=== PATIENT | male | born 1950 | race Caucasian/White ===

== ENCOUNTER → 2017-10-24 08:39 | Outpatient (CLI) | payer BC ==
[2017-10-24 09:43] LABS: ALBUMIN 3.6 g/dL (3.4-5.0); BILIRUBIN - DIRECT 0.02 mg/dL (0.00-0.30); BILIRUBIN - INDIRECT 0.21 mg/dL (0.00-1.00); BILIRUBIN - TOTAL 0.23 mg/dL (0.2-1.3); PROTEIN - SERUM 6.7 g/dL (6.4-8.2)
== END | disposition home or self-care (01) ==
LOC: D.US 08:39
PROVIDERS: Internal Medicine Gastroenterology
DX: R79.89 Other specified abnormal findings of blood chemistry (principal)

== ENCOUNTER 2017-11-21 16:48 | Inpatient (IN) | payer BC ==
[~2017-11-21] VITALS: Ht 175.3 cm; Wt 80.6 kg
--- NOTE | ~2017-11-21 | MORECARE ---
CASE MANAGEMENT DISCHARGE SUMMARY PATIENT: MAYCOL LAW UNIT: [id number] ADM DATE: 11/21/17 AGE: 67 : [birth year] SEX: M ROOM/BED: D.[facility]7 AUTHOR: HENNA,DOC PHYSICIAN: REFERRING PHYSICIAN: RED MCCALLUM M.D. DATE OF SERVICE: 11/24/17 Discharge Plan Patient Name: MAYCOL LAW Facility: [facility]:[place] : 1950 Planned Disposition: Home Anticipated Discharge Date: 11/24/17 Discharge Date: 11/24/2017 Expected LOS: 3 Initial Reviewer: [email or web address] Initial Review Date: 11/24/2017 Generated: 11/24/17 5:11 pm Comments DCP- Discharge Planning Updated by [email or web address]: Timmy Nicholson on 11/24/17 3:[address] Patient Name: MAYCOL LAW Admission Status: ER Accout number: [id number] Admission Date: 11-21-2017 : 1950 Admission Diagnosis: Attending: RED MCCALLUM Current LOS: 3 Anticipated DC Date: 11-24-2017 Planned Disposition: Home Primary Insurance: ClaimReturn OUT OF STATE Discharge Planning Comments: * Is the patient Alert and Oriented? Yes 0 * How many steps to enter\exit or inside your home? 1 0 * PCP DR. COSTA 0 * Pharmacy [facility] [address] [facility] * Preadmission Environment Home with Family 0 * ADLs Independent 0 * Equipment None 0 * Other Equipment NO MEDICAL EQUIPMENT PROVIDER PREFERENCE 0 * List name and contact numbers for known caregivers / representatives who currently or will assist patient after discharge: ERINN LAW, SPOUSE, 0 * Verbal permission to speak to the caregivers and representatives has been obtained from the patient. Yes 0 * Community resources currently utilized None 0 * Please name any agencies selected above. NONE 0 * Additional services required to return to the preadmission environment? No 0 * Can the patient safely return to the preadmission environment? Yes 0 * Has this patient been hospitalized within the prior 30 days at any hospital? No 0 CM MET WITH PT AND SPOUSE IN ROOM TO DISCUSS DISCHARGE PLANNING AND NEEDS. MAYCOL LAW provided verbal consent to discuss current and ongoing needs with/in the presence of: SPOUSE LIZ. PT REPORTS LIVING AT HOME INDEPENDENTLY WITH SPOUSE. PT HAS NO MEDICAL EQUIPMENT AND NO OUTSIDE SERVICES ASSISTING IN THE HOME. CM DISCUSSED AVAILABILITY OF HOME HEALTH, REHAB SERVICES AND MEDICAL EQUIPMENT. PT DENIES DISCHARGE NEEDS, REPORTS HIS SPOUSE IS HERE TO PICK HIM UP FOR DISCHARGE HOME TODAY. LINER MACHINE OPERATOR NURSE NOTIFIED. Citizenship Teacher: Timmy Nicholson DCPIA - Discharge Planning Initial Assessment Updated by [email or web address]: Timmy Nicholson on 11/24/17 4:07 pm * Is the patient Alert and Oriented? Yes * How many steps to enter\exit or inside your home? * PCP DR. COSTA * Pharmacy [facility] [address] * Preadmission Environment Home with Family * ADLs Independent * Equipment None * Other Equipment NO MEDICAL EQUIPMENT PROVIDER PREFERENCE * List name and contact numbers for known caregivers / representatives who currently or will assist patient after discharge: ERINN LAW, SPOUSE, * Verbal permission to speak to the caregivers and representatives has been obtained from the patient. Yes * Community resources currently utilized None * Please name any agencies selected above. NONE * Additional services required to return to the preadmission environment? No * Can the patient safely return to the preadmission environment? Yes * Has this patient been hospitalized within the prior 30 days at any hospital? No Patient Name: MAYCOL LAW Page [id number] at 1611 All edits/amendments must be made on the electronic document DICTATION DATE: 11/24/17 161 CENTER MACHINE OPERATOR: EVER 11/24/17 1611 RPT#: [id number] DC DATE:11/24/17 STATUS: DIS IN [facility] [address] [place] [address] END OF REPORT
--- NOTE | ~2017-11-21 | HEMODYNAMI ---
PATIENT:MAYCOL LAW MEDICAL RECORD: [id number] : 54 [id number] ADMISSION DATE: 11/21/17 Generatedon:11/21/201721:23 Patient name: MAYCOL LAW Patient #: [id number] SSN: DO B: 1950 Date of study: 11/21/2017 Page: Of Hemodynamic Procedure Report Patient Data Patient Demographics Procedure consent was obtained First Name: MAYCOL Gender: Male Last Name: THANH : 1950 Patient #: [id number] Age: 67 year(s) Race: Unknown Additional ID: [id number] Contact details [address]: [address] [place] [address] State: [place] City: [place] Zip code: [address] Admission Admission Data Admission Date: 11/21/2017 Admission Time: 16:48 Height (in.): 68.9 BSA: 1.95 (m2) Height (cm.): 175 BMI: 25.8 (kg/m2) Weight (lbs.): 174.17 Weight (kg.): 79 Procedure Procedure Types Cath Procedure Diagnostic Procedure C [facility] w/Coronaries Sedation Charges Moderate Sedation up to 45 minutes PCI Procedure AMI/SVG/CIRCULAR KNIFE MACHINE CUTTER PTCA or Stent AMI-BMS/BRONSON Initial Procedure Description Procedure Date Procedure Date: 11/21/2017 Procedure Start Time: 20:23 Procedure End Time: 21:17 Procedure Staff Name Function Raghu Boyd MD Performing Physician Kristina Deng RT Monitor Silvia Del Toro RT Scrub Abebe Khan RN Nurse Procedure Data Cath Procedure Fluoroscopy Diagnostic fluoroscopy Total fluoroscopy Time: time: 15.2 min 15.2 min Diagnostic fluoroscopy Total fluoroscopy dose: dose: 2226 mGy 2226 mGy Contrast Material Contrast Material Type Amount (ml) Isovue 300 239 Entry Location Entry Primary Successful Side Size Upsize Upsize Entry Closure Succes sful Closure Location (Fr) 1 (Fr) 2 (Fr) Remarks Device Remarks Femoral Right 6 Fr Exoseal artery Short Estimated blood loss: 5 ml Diagnostic catheters Device Type Used For End Catheter Placement MULTIPACK JL 4.0 5Fr Left Coronary catheter Angiography MULTIPACK 3DRC 5Fr Right Coronary catheter Angiography MULTIPACK Pigtail 5 Fr LV Angiography catheter Procedure Complications No complications Procedure Medications Medication Administration Route Dosage Oxygen etCO2 Nasal cannula 2 l/min Heparin Flush Bag added to field 2 bags (1000units/500ml NS) 0.9% NaCl I.V. 100 ml/hr Fentanyl I.V. 50 mcg Versed I.V. 1 mg Fentanyl I.V. 50 mcg Versed I.V. 1 mg Lopressor I.V. 2.5 mg Heparin Bolus I.V. 8000 units Nitroglycerin IC/IA I.C. 100 mcg Nitroglycerin IC/IA I.C. 100 mcg Brilinta P.O. 180 mg Hemodynamics Rest BSA: 1.95 (m2) O2 Consumption: Estimated: 253.25 (ml/min) O2 Consumption indexed : Estimated:129.87 (ml/min/m) Heart Rate: 105 (bpm) Pressure Samples Time Site Value (mmHg) Purpose Heart Use Rate(bpm) 21:13 LV 137/8,28 Snapshot 98 21:14 AO 141/76(104) Pullback 103 21:14 LV 142/9,32 Pullback 103 Gradients Valve Time Site 1 Site 2 Mean SEP/DFP Peak To Heart Use (mmHg) (sec/min) Peak Rate (mmHg) (bpm) Aortic 21:14 LV AO 16 9 1 103 142/9,32 141/76(104) Calculations Valve P-P Mean Valve Index Valve Source Name Gradient Area Flow (cm2) Aortic 1 16 1 16 Snapshots Pre Cath Intra NCS Post Cath Vital Signs Time Heart Resp SPO2 etCO2 NIBP (mmHg) Rhythm Pain Sedation Rate (ipm) (%) (mmHg) Status Level (bpm) 20:17:39 105 10 95 0 161/95(115) NSR 0 (11) 10(A) , No pain 20:21:55 105 16 96 32.2 160/93(119) NSR 0 (11) 10(A) , No pain 20:26:13 110 16 95 36.7 161/93(122) NSR 0 (11) 9(A) , No pain 20:30:27 105 16 96 35.9 161/89(120) NSR 0 (11) 9(A) , No pain 20:34:43 100 16 97 37.4 154/94(117) NSR 0 (11) 9(A) , No pain 20:39:00 101 16 98 34.5 153/91(110) NSR 0 (11) 9(A) , No pain 20:43:09 100 16 96 35.9 140/86(109) NSR 0 (11) 9(A) , No pain 20:47:22 103 17 96 38.9 144/80(110) NSR 0 (11) 9(A) , No pain 20:51:33 105 17 94 38.2 138/77(98) NSR 0 (11) 9(A) , No pain 20:55:43 99 17 96 39 132/82(105) NSR 0 (11) 9(A) , No pain 20:59:53 104 16 96 37.5 140/84(106) NSR 0 (11) 9(A) , No pain 21:04:05 103 17 97 38.2 137/81(99) NSR 0 (11) 9(A) , No pain 21:08:17 104 17 95 37.4 131/79(89) NSR 0 (11) 9(A) , No pain 21:12:27 102 16 95 36.7 134/75(95) NSR 0 (11) 9(A) , No pain 21:16:37 102 16 96 37.4 130/78(97) NSR 0 (11) 9(A) , No pain 21:18:33 101 17 97 36.7 128/79(99) NSR 0 (11) 10(A) , No pain Medications Time Medication Route Dose Verified Delivered Reason Notes Effectiveness by by 20:21:35 Oxygen etCO2 2 Raghu Abebe Per physician Nasal l/min Oliver Khan RN cannula 20:21:41 Heparin Flush added 2 Raghu Abebe used for Bag to bags Oliver Khan pharmacognosist (1000units/500ml field NS) 20:21:50 0.9% NaCl I.V. 100 Raghu Abebe Per physician ml/hr Oliver Khna RN 20:21:58 Fentanyl I.V. 50 Raghu Abebe for sedation mcg Oliver Khan RN 20:22:05 Versed I.V. 1 mg Raghu Abebe for sedation Oliver Khan RN 20:24:45 Fentanyl I.V. 50 Raghu Abebe for sedation mcg Oliver Khan RN 20:24:49 Versed I.V. 1 mg Raghu Abebe for sedation Oliver Khan RN 20:28:26 Lopressor I.V. 2.5 Raghu Abebe Per physician mg Oliver Khan RN 20:34:18 Heparin Bolus I.V. 8000 Raghu Abebe for units Oliver Khan RN anticoagulation 20:47:18 Nitroglycerin I.C. 100 Raghu Raghu for IC/IA mcg Oliver Boyd MD vasodilation 21:05:33 Nitroglycerin I.C. 100 Raghu Raghu for IC/IA mcg Oliver Boyd MD vasodilation 21:17:41 Brilinta P.O. 180 Raghu Abebe for mg Oliver Khan RN antiplatelet therapy Procedure Log Time Note 20:01:01 Abebe Khan RN sent for patient. Start room use. 20:01:01 Time tracking: Regular hours (M-F 7:00 - 5:00) 20:01:06 Plan of Care:Hemodynamics will remain stable., Cardiac rhythm will remain stable., Comfort level will be maintained., Respiratory function will remain adequate., Patient/ family verbilizes understanding of procedure., Procedure tolerated without complication., Recovers from procedure without complications.. 20:16:33 Patient received from ED to CCL 1 Alert and oriented. Tansferred to table in Supine position. 20:16:34 Warm blankets applied, and virgilio hugger turned on for patient comfort. 20:16:35 Correct patient and procedure confirmed by team. 20:16:36 Signed procedure consent form obtained from patient. 20:16:37 ECG and BP/O2 sat monitors applied to patient. 20:16:38 Vital chart was started 20:16:39 Baseline sample Acquired. 20:16:40 Full Disclosure recording started 20:16:47 H&P Date Dictated: 11/21/2017 New H&P dictated by physician.. 20:16:49 Pre-procedure instructions explained to patient. 20:16:49 Pre-op teaching completed and patient verbalized understanding. 20:16:50 Family in waiting room. 20:16:53 Patient NPO since Midnight. 20:16:55 Is the patient allergic to Iodine/contrast media? No. 20:16:57 Was the patient premedicated? No 20:17:09 Is patient on blood thinner?Yes 20:17:12 Patient diabetic? No. 20:17:15 Previous problem with sedation/anesthesia? No ? 20:17:18 Snore? Yes 20:17:22 Sleep apnea? No 20:17:24 Deviated septum? No 20:17:26 Opens mouth fully? Yes 20:17:28 Sticks out tongue? Yes 20:17:31 Airway obstruction? No ? 20:18:31 Dentures? No ? 20:18:35 Pre procedure: right dorsailis pedis pulse 2+ Normal; easily identifiable; not easily obliterated 20:18:38 Pre procedure: left dorsailis pedis pulse 2+ Normal; easily identifiable; not easily obliterated 20:18:45 Patient pain scale 0/10 ?. 20:18:51 IV patent on arrival in right hand with 0.9% NaCl at O. 20:18:54 Lab results completed and on chart. 20:18:59 Right groin area was prepped with chlora-prep and draped in sterile fashion 20:19:01 Alarms reviewed by R. N. 20:19:02 Sharps counted by scrub and verified by R.N. 20:19:03 Physician arrived 20:19:03 --------ALL STOP TIME OUT------ 20:19:04 Final Timeout: patient, procedure, and site verified with staff and physician. All members of the team are in agreement. 20:19:06 Right groin site verified by team. 20:19:09 Physical assessment completed. ASA score P 2 - A patient with mild systemic disease as per Raghu Boyd MD. 20:19:13 Sedation plan: IV Moderate Sedation Medication:Versed, Fentanyl 20:19:18 Use device set Femoral Dx 20:19:20 ACIST Syringe (05121) opened to sterile field. 20:19:20 Bag Decanter () opened to sterile field. 20:19:21 Medline Cath Pack ([id number]) opened to sterile field. 20:19:21 DIAGNOSTIC WIRE .035 260cm J wire (565618) opened to sterile field. 20:19:23 ACIST Hand Control (35830) opened to sterile field. 20:19:23 ACIST Manifold (90259) opened to sterile field. 20:19:24 DIAGNOSTIC Multipack 5Fr catheter set (JF3747) opened to sterile field. 20:19:25 Tegaderm 4 x 4 (1626W) opened to sterile field. 20:19:34 Procedure started. 20:21:35 Oxygen 2 l/min etCO2 Nasal cannula was administered by Abebe Khan RN; Per physician; 20:21:41 Heparin Flush Bag (1000units/500ml NS) 2 bags added to field was administered by Abebe Khan RN; used for procedure; 20:21:50 0.9% NaCl 100 ml/hr I.V. was administered by Abebe Khan RN; Per physician; 20::58 Fentanyl 50 mcg I.V. was administered by Abebe Khan RN; for sedation; 20:22:05 Versed 1 mg I.V. was administered by Abebe Khan RN; for sedation; 20:23:14 Local anesthetic to right femoral artery with Lidocaine 2% by Raghu Boyd MD.INITIAL ACCESS ONLY 20:24:03 SHEATH Prelude 6Fr 0.035 (KCM-6I-47-035) opened to sterile field. 20:24:38 A 6 Fr Short sheath was inserted into the Right Femoral artery 20:24:45 Fentanyl 50 mcg I.V. was administered by Abebe Khan RN; for sedation; 20:24:49 Versed 1 mg I.V. was administered by Abebe Khan RN; for sedation; 20:25:53 Patient Weight : 174.17 lbs 20:25:57 Patient Height : 68.9 inches 20:26:09 A MULTIPACK JL 4.0 5Fr catheter was advanced over the wire and used for Left Coronary Angiography. 20:26:29 LCA angiography performed. 20:26:32 Injector settings: Ml/sec: 3, Volume: 6, 20:28:26 Lopressor 2.5 mg I.V. was administered by Abebe Khan RN; Per physician; 20:30:03 GUIDE 6FR XBLAD 3.5 catheter ([id number]) opened to sterile field. 20:30:04 BMW 300cm [place] 2 J wire ([id number]) opened to sterile field. 20:30:04 INFLATOR Merit BasixCompak (EP3897) opened to sterile field. 20:30:14 Catheter removed. 20:30:21 A MULTIPACK 3DRC 5Fr catheter was advanced over the wire and used for Right Coronary Angiography. 20:30:59 RCA angiography performed. 20:31:02 Injector settings: Ml/sec: 3, Volume: 6, 20:31:13 Catheter removed. 20:33:04 6 Fr xblad 3.5 guide catheter was inserted over the wire 20:34:03 bmw wire advanced. 20:34:18 Heparin Bolus 8000 units I.V. was administered by Abebe Khan RN; for anticoagulation; 20:39:07 Inflate balloon Inflation number: 1 A EMERGE OTW 2.5 x 20 balloon ([id number]) was prepped and advanced across the Prox LAD, then inflated to 8 RITU for 0:10 (min:sec). 20:39:33 Inflation number: 2 The EMERGE OTW 2.5 x 20 balloon ([id number]) was reinflated across the Prox LAD, to 10 RITU for 0:10 (min:sec). 20:41:23 Balloon removed over the wire. 20:46:17 Place stent Inflation Number: 3 A INTEGRITY OTW 3.0 X 30 stent ([id number]) was prepped and advanced across the Prox LAD. The stent was deployed at 10 RITU for 0:10 (min:sec). 20:47:18 Nitroglycerin IC/IA 100 mcg I.C. was administered by Raghu Boyd MD; for vasodilation; 20:49:29 Stent catheter was removed intact over wire. 20:52:53 LUGE Straight 300cm 0.014 guide wire ([id number]) opened to sterile field. 20:54:35 luge wire advanced 20:54:36 luge wire pulled back into catheter 20:58:38 Place stent Inflation Number: 4 A INTEGRITY OTW 3.5 X 12 stent ([id number]) was prepped and advanced across the Prox LAD. The stent was deployed at 10 RITU for 0:10 (min:sec). 21:00:48 Stent catheter was removed intact over wire. 21:04:37 Place stent Inflation Number: 1 A INTEGRITY OTW 2.25 X 18 stent ([id number]) was prepped and advanced across the Mid LAD. The stent was deployed at 13 RITU for 0:10 (min:sec). 21:05:33 Nitroglycerin IC/IA 100 mcg I.C. was administered by Raghu Boyd MD; for vasodilation; 21:10:31 Stent catheter was removed intact over wire. 21:10:33 Wire removed. 21:10:34 Guide catheter removed. 21:10:44 A MULTIPACK Pigtail 5 Fr catheter was advanced over the wire and used for LV Angiography. 21:13:45 LV hemodynamics recorded. 21:13:46 LV gram done using DRAKE 21:13:48 Injector settings: Ml/sec: 5, Volume: 15, 21:13:54 EF : 45 % 21:14:48 Catheter removed. 21:14:58 Sheath removed intact; hemostasis achieved with Exoseal to the Right Femoral artery. 21:15:00 Procedure ended.(Physican Out) 21:15:12 Fluoroscopy time 15.20 minutes. 21:15:18 Fluoroscopy dose: 2226 mGy 21:15:18 Flurop Dose total: 2226 21:15:48 Contrast amount:Isovue 300 239ml. 21:15:53 Sharps counted by scrub and verified by R.N. 21:15:55 Insertion/operative site no bleeding no hematoma. 21:15:58 Post-op/insertion site Right Femoral artery dressed using a 4 x 4 and Tegaderm. 21:16:00 Post right femoral artery:stable 21:16:02 Post Procedure Pulses reassessed and unchanged 21:16:05 Post procedure rhythm: unchanged. 21:16:08 Estimated blood loss: 5 ml 21:16:10 Post procedure instruction explained to patient.Patient verbalizes understanding. 21:16:11 Patient needs reinforcement of post procedure teaching. 21:16:43 Procedure type changed to Cath procedure, Diagnostic procedure, LHC, LHC w/Coronaries, Sedation Charges, Moderate Sedation up to 45 minutes, PCI procedure, AMI/SVG/CIRCULAR KNIFE MACHINE CUTTER PTCA or Stent, AMI-BMS/BRONSON Initial 21:16:45 Procedure and supply charges have been captured, reviewed, submitted and are correct. 21:16:50 Procedure Complication : No complications 21:16:54 Vital chart was stopped 21:16:54 See physician's report for complete and final results. 21:16:58 Report given to CVICU. 21:17:00 Patient transfered to CVICU with Stretcher. 21:17:02 Procedure ended. 21:17:02 Full Disclosure recording stopped 21:17:09 ACC-PCI Only Patient was given prescriptions, or instructed by Raghu Boyd MD to start/continue the following medications upon discharge: Brilinta 21:17:11 End room use (Document Last) 21:17:41 Brilinta 180 mg P.O. was administered by Abebe Khan RN; for antiplatelet therapy; 21:23:20 EXOSEAL 6Fr (EX600) opened to sterile field. Intervention Summary Intervention Notes Time ActionType Lesion and Equipment Action# Pressure Duration Attributes Used 20:39:07 Inflate Prox LAD EMERGE OTW 1 8 00:10 balloon 2.5 x 20 balloon ([id number]) 20:39:33 Reinflate Prox LAD EMERGE OTW 2 10 00:10 balloon 2.5 x 20 balloon ([id number]) 20:46:17 Place stent Prox LAD INTEGRITY 3 10 00:10 OTW 3.0 X 30 stent ([id number]) 20:58:38 Place stent Prox LAD INTEGRITY 4 10 00:10 OTW 3.5 X 12 stent ([id number]) 21:04:37 Place stent Mid LAD INTEGRITY 1 13 00:10 OTW 2.25 X 18 stent ([id number]) Device Usage Item Name Manufacture Quantity Catalog Number Hospital Part Current Minimal Lot# / Charge Number Stock Stock Serial# Code ACIST Syringe Acist 1 04588 670473 691622 141516 20 (00153) Medical Systems Inc Bag Decanter Microtek 1 2001S 325735 53657 205868 5 () Medical Inc. Medline Cath Cardinal 1 [id number] 445371 60990 490564 5 Pack Health ([id number]) DIAGNOSTIC WIRE [place] 1 680627 739217 378938 967230 30 .035 260cm J wire (270085) ACIST Hand Acist 1 92954 550130 622099 813157 5 Control (88371) Medical Systems Inc ACIST Manifold Acist 1 00823 113396 830979 007639 5 (63927) Medical Systems Inc DIAGNOSTIC Cardinal 1 IO3437 219947 39256 556792 30 Multipack 5Fr Health catheter set (HN5214) Tegaderm 4 x 4 3M 1 1626W 810785 252264 747224 5 (1626W) SHEATH Prelude Merit 1 MYA-7Z-54-35 773502 3440958 588791 5 6Fr 0.035 Medical (VYE-3F-99-035) MULTIPACK JL Cardinal 1 583711 5 4.0 5Fr Health catheter GUIDE 6FR XBLAD Cardinal 1 [id number] 667724 522203 459719 10 3.5 catheter Health (38622636) BMW 300cm [place] 1 [id number] 949725 551204 992985 5 [place] 2 J Vascular wire (5223183N) INFLATOR Merit Merit 1 GO5035 925594 619991 785366 15 BasixCompak Medical (NC4782) MULTIPACK 3DRC Cardinal 1 608432 5 5Fr catheter Health EMERGE OTW 2.5 [place] 1 [id number] 558967 611934 977987 5 x 20 balloon Scientific ([id number]) INTEGRITY OTW Medtronic 1 [id number] 368262 398800 3 [id number] 3.0 X 30 stent ([id number]) LUGE Straight [place] 1 [id number] 789580 951411 071079 5 300cm 0.014 Scientific guide wire (09381759) INTEGRITY OTW Medtronic 1 [id number] 081241 974940 5 [id number] 3.5 X 12 stent ([id number]) INTEGRITY OTW Medtronic 1 [id number] 098088 964410 0 [id number] 2.25 X 18 stent ([id number]) MULTIPACK Cardinal 1 340598 5 Pigtail 5 Fr Health catheter EXOSEAL 6Fr Cardinal 1 EX600 630734 342062 388653 10 (EX600) Health Signature Audit [place] Stage Time Signature Unsigned Intra-Procedure 11/21/2017 Kristina Deng 9:23:52 PM RT(R) Signatures Monitor : Kristina Deng RT Signature : Date : Time : [id number] [place] [address]
[2017-11-21] MEDS ORDERED: OMEPRAZOLE40 MG PO (16:56)
[2017-11-21] MEDS ORDERED: PEPCID40 MG PO (16:56)
[2017-11-21] MEDS ORDERED: LISINOPRIL10 MG PO (16:56)
[2017-11-21 17:00] VITALS: BP 155/77
[2017-11-21 18:08] LABS: BASOPHILS 0.2 % (0-2); EOSINOPHILS 0.1 % (0-7); HEMATOCRIT 43.2 % (42.0-54.0); HEMOGLOBIN 15.2 g/dL (13.5-17.5); IMMATURE GRANULOCYTES 0.1 % (0-5); LYMPHOCYTES 11.3 % (15-50); MCH 31.6 pg (26.0-34.0); MCHC 35.2 g/dL (31.0-37.0); MCV 89.8 fL (80.0-100.0); MONOCYTES 2.4 % (2-11); NEUTROPHILS 85.9 % (40-80); PLATELET COUNT 213 10x3/uL (130-400); RBC 4.81 10x6/uL (4.20-6.10); RDW 13.3 % (11.5-14.5)
[2017-11-21 18:19] LABS: APTT 23.3 SECONDS (22.8-39.4)
[2017-11-21 18:20] LABS: INR 1.04 (0.85-1.17); PROTIME 13.2 SECONDS (11.6-15.0)
[2017-11-21 18:21] LABS: D-DIMER-QUANTITATIVE 1.28 ug/mLFEU (0.20-0.54)
[2017-11-21 18:31] LABS: ALBUMIN 4.2 g/dL (3.4-5.0); ALKALINE PHOSPHATASE 79 U/L (46-116); ALT (SGPT) 71 U/L (10-68); BILIRUBIN - TOTAL 0.46 mg/dL (0.2-1.3); CALC OSMOLALITY 284 mosm/kg (275-300); CALCIUM 9.3 mg/dL (8.5-10.1); CARBON DIOXIDE 26.7 mmol/L (21.0-32.0); CHLORIDE - SERUM 103 mmol/L (98-107); CREATININE - SERUM 1.1 mg/dL (0.6-1.3); GLUCOSE 161 mg/dL (74-106); POTASSIUM - SERUM 4.5 mmol/L (3.5-5.1); PROTEIN - SERUM 7.3 g/dL (6.4-8.2); SODIUM 141 mmol/L (136-145); UREA NITROGEN 14 mg/dL (7-18); eGFR NON AFRICAN AMERICAN 71 mL/min (90-120)
[2017-11-21 18:49] LABS: CREATINE KINASE 81 UL (21-232); MAGNESIUM - SERUM 2.1 mg/dL (1.8-2.4)
[2017-11-21 18:57] LABS: TROPONIN-I 0.331 ng/mL (0.000-0.060)
[2017-11-21 19:00] VITALS: BP 170/87
[2017-11-21 19:30] VITALS: BP 167/79
[2017-11-21 22:00] VITALS: BP 138/75
[2017-11-21 22:44] VITALS: BP 136/76; BMI 26.7
[2017-11-21 23:00] VITALS: BP 127/73
[2017-11-22] VITALS (24 sets, daily range): BP systolic 116–148; BP diastolic 67–87; Ht 175.3 cm; Wt 80.6 kg
[2017-11-22 06:38] LABS: BASOPHILS 0.1 % (0-2); EOSINOPHILS 0 % (0-7); HEMATOCRIT 38.5 % (42.0-54.0); HEMOGLOBIN 13.7 g/dL (13.5-17.5); IMMATURE GRANULOCYTES 0.3 % (0-5); LYMPHOCYTES 4.2 % (15-50); MCH 31.6 pg (26.0-34.0); MCHC 35.6 g/dL (31.0-37.0); MCV 88.7 fL (80.0-100.0); MEAN PLATELET VOLUME 10.1 fL (7.4-10.4); MONOCYTES 3.8 % (2-11); NEUTROPHILS 91.6 % (40-80); PLATELET COUNT 199 10x3/uL (130-400); RBC 4.34 10x6/uL (4.20-6.10); RDW 13.4 % (11.5-14.5)
[2017-11-22 06:40] LABS: WBC 15.7 10x3/uL (4.8-10.8)
[2017-11-22 07:00] LABS: ANION GAP 15.3 mmol/L (8-16); CALCIUM 8.5 mg/dL (8.5-10.1); CARBON DIOXIDE 22.8 mmol/L (21.0-32.0); CREATININE - SERUM 1.1 mg/dL (0.6-1.3); POTASSIUM - SERUM 4.1 mmol/L (3.5-5.1)
[2017-11-22 07:32] LABS: TROPONIN-I 69.367 ng/mL (0.000-0.060)
[2017-11-23] VITALS (12 sets, daily range): BP systolic 97–146; BP diastolic 48–75
[2017-11-23 04:26] LABS: BASOPHILS 0.2 % (0-2); EOSINOPHILS 2.4 % (0-7); HEMATOCRIT 36.2 % (42.0-54.0); HEMOGLOBIN 12.6 g/dL (13.5-17.5); IMMATURE GRANULOCYTES 0.3 % (0-5); LYMPHOCYTES 8.9 % (15-50); MCHC 34.8 g/dL (31.0-37.0); MCV 88.9 fL (80.0-100.0); MEAN PLATELET VOLUME 9.8 fL (7.4-10.4); MONOCYTES 5.2 % (2-11); PLATELET COUNT 182 10x3/uL (130-400); RBC 4.07 10x6/uL (4.20-6.10); RDW 13.4 % (11.5-14.5)
[2017-11-23 04:36] LABS: ANION GAP 12.7 mmol/L (8-16); CALCIUM 8.7 mg/dL (8.5-10.1); CARBON DIOXIDE 24.3 mmol/L (21.0-32.0); CREATININE - SERUM 1.2 mg/dL (0.6-1.3)
[2017-11-24] VITALS: BP 136/70
[2017-11-24 04:00] VITALS: BP 138/71
[2017-11-24] MEDS ORDERED: COREG 3.1253.125 MG PO (07:54)
[2017-11-24] MEDS ORDERED: MUCINEX600 MG PO (07:54)
[2017-11-24] MEDS ORDERED: BRILINTA90 MG PO (07:54)
[2017-11-24] MEDS ORDERED: BAYER CHEWABLE81 MG PO (07:55)
[2017-11-24] MEDS ORDERED: AUGMENTIN 875-11 TAB PO (07:56)
[2017-11-24] MEDS ORDERED: LIPITOR20 MG PO (07:56)
[2017-11-24 08:34] VITALS: BP 141/78
== END 2017-11-24 10:37 | disposition home or self-care (01) | DRG 248 ==
LOC: D.ER 16:48 → D.CVICU 21:31 → D.ER 21:32 → D.M2 11-23 10:33
PROVIDERS: Family Medicine; Internal Medicine Cardiovascular Disease; Internal Medicine Gastroenterology
PROC: B2111ZZ Fluoroscopy of Multiple Coronary Arteries using Low Osmolar Contrast (ICD-10-PCS; 2017-11-21)
PROC: B2151ZZ Fluoroscopy of Left Heart using Low Osmolar Contrast (ICD-10-PCS; 2017-11-21)
PROC: 02703FZ Dilation of Coronary Artery, One Artery with Three Intraluminal Devices, Percutaneous Approach (ICD-10-PCS; principal; 2017-11-21 20:30)
PROC: 4A023N7 Measurement of Cardiac Sampling and Pressure, Left Heart, Percutaneous Approach (ICD-10-PCS; 2017-11-21 20:30)
DX: I21.09 ST elevation (STEMI) myocardial infarction involving other coronary artery of anterior wall (principal); J69.0 Pneumonitis due to inhalation of food and vomit; I25.10 Atherosclerotic heart disease of native coronary artery without angina pectoris; K21.9 Gastro-esophageal reflux disease without esophagitis; I10 Essential (primary) hypertension; R00.0 Tachycardia, unspecified

== ENCOUNTER 2018-02-06 05:55 | Day surgery (SDC) | payer BC, MEDICARE ==
[2018-02-05 11:14] LABS: HEMATOCRIT 42.3 % (42.0-54.0); HEMOGLOBIN 14.6 g/dL (13.5-17.5); MCH 31.3 pg (26.0-34.0); MCHC 34.5 g/dL (31.0-37.0); MCV 90.8 fL (80.0-100.0); MEAN PLATELET VOLUME 9.9 fL (7.4-10.4); RBC 4.66 10x6/uL (4.20-6.10); RDW 13.6 % (11.5-14.5); WBC 4.5 10x3/uL (4.8-10.8)
[~2018-02-06] VITALS: Ht 175.3 cm; Wt 79.4 kg
[~2018-02-06 05:55] MED LIST: ACETAMINOPHEN500 M1 PO; AUGMENTIN 875-11 TAB PO; BAYER CHEWABLE81 MG PO; BRILINTA90 MG PO; COREG 3.1253.125 MG PO; LIPITOR20 MG PO; LISINOPRIL10 MG PO; MUCINEX600 MG PO; OMEPRAZOLE40 MG PO; PEPCID40 MG PO; SLEEP AID25 M1 PO
[2018-02-06 06:30] VITALS: BP 136/77; Ht 175.3 cm; Wt 79.4 kg
--- NOTE | 2018-02-06 10:52 | NUR ---
REPORT TAKEN FROM Angelina SHAFFER RN. PATIENT CARE ASSUMED AT THIS TIME.
--- NOTE | 2018-02-06 11:15 | NUR ---
MAGDY WISHES TO RETURN TO OPD AT THIS TIME FOR USE OF PERSONAL RESTROOM. VSS.
--- NOTE | 2018-02-06 13:57 | OP ---
PATIENT NAME: CHANA LAW MEDICAL RECORD: [id number] :54 LOCATION:D.OPS ADMISSION DATE: SURGEON: RACHEL SRINIVASAN MD DATE OF OPERATION: 02/06/2018 PREOPERATIVE DIAGNOSIS: A 5 cm distal rectal polyp, sessile. POSTOPERATIVE DIAGNOSIS: A 5 cm distal rectal polyp, sessile. PROCEDURES: 1. Total colonoscopy to cecum. 2. Polypectomy utilizing endoscopic mucosal resection as well as the argon plasma configuration analyst. SURGEON: Rachel Srinivasan MD ROTARY DRILLER: None. BLOOD LOSS: Less than 25 cc. ANESTHESIA: General. COMPLICATIONS: None. The risks, possible complications, and alternatives to procedure were explained to the patient. He elects to proceed. I reviewed his endoscopic photos as well as the endoscopic report just prior to the procedure. OPERATIVE COURSE: The patient was conveyed to the operating room electively on 02/06/2018. General anesthesia was induced by the anesthesia staff. The patient was placed in the Carmichael position. A digital rectal examination was performed. A colonoscope was inserted through the anus. It was easily advanced to the cecum. The prep was adequate. I then pulled back the endoscope. I dragged the folds. The pullback was greater than a 25-minute pullback. In the rectum, I advanced a sclerotherapy needle and performed a submucosal injection of epinephrine for postoperative hemostasis. I then through the same sclerotherapy needle injected [place]view to get a lift of the polyp away from the rectal wall. The polyp did lift away nicely. I then took the endoscopic snare and snared the polyp away. The portions of the polyp were retrieved through the anus. I then took some additional cold biopsies of some surrounding polypoid tissue. I then treated the rectal scar on the [facility] where there had been a tattoo. I also treated the base of the polypectomy site with the argon plasma configuration analyst utilizing the right colon setting in the forced mode. I then unretroflexed the scope and removed it under direct vision. Plan is to see the patient in my office in 2-3 weeks. If there is no malignancy present within the polypoid specimen, I will plan for his next colonoscopy with the argon plasma configuration analyst to take place in 1 year in the GI lab. Alternatively, the polyp was so low that it could be approached utilizing an excisional transanal technique. He is going to be dismissed home on Flagyl and I would like for him to hold off on restarting his Brilinta for 4 days. OPERATIVE REPORT [id number] CHANA LAW PAT TRANSINT:[id number] Voice Confirmation ID: [id number] DOCUMENT ID: [id number] RACHEL SRINIVASAN MD at 1357 CC: RED MCCALLUM M.D., LIONEL DAY and IGOR,VIKTOR Nick [phone] DICTATION DATE: 02/06/18 1113 INVESTOR RELATIONS ASSOCIATE: 02/06/18 1207 REG [facility] [address] [place] [address]
--- NOTE | 2018-02-06 15:25 | NUR ---
PATIENT LEFT UNIT VIA WHEELCHAIR
== END 2018-02-06 15:25 | disposition home or self-care (01) ==
LOC: D.OPS 05:55 → D.PAN 08:45 → D.OPS 09:15 → D.PAN 09:15 → D.OPS 15:25
PROVIDERS: Anesthesiology
DX: K62.1 Rectal polyp (principal)

== ENCOUNTER 2018-02-16 10:17 | Inpatient (IN) | payer BC, MEDICARE ==
[2018-02-16] VITALS (13 sets, daily range): BP systolic 130–158; BP diastolic 74–106; BMI 25.1
[~2018-02-16] VITALS: Ht 175.3 cm; Wt 82.1 kg
[2018-02-16 11:10] LABS: BASOPHILS 0.6 % (0-2); EOSINOPHILS 2.7 % (0-7); HEMATOCRIT 41.8 % (42.0-54.0); HEMOGLOBIN 14.2 g/dL (13.5-17.5); LYMPHOCYTES 38.1 % (15-50); MCH 30.8 pg (26.0-34.0); MCV 90.7 fL (80.0-100.0); MEAN PLATELET VOLUME 9.9 fL (7.4-10.4); MONOCYTES 6.4 % (2-11); NEUTROPHILS 52.2 % (40-80); RBC 4.61 10x6/uL (4.20-6.10); RDW 13.3 % (11.5-14.5); WBC 4.8 10x3/uL (4.8-10.8)
[2018-02-16 11:14] LABS: PLATELET COUNT 253 10x3/uL (130-400)
[2018-02-16 11:18] LABS: INR 1.01 (0.85-1.17); PROTIME 12.8 SECONDS (11.6-15.0)
[2018-02-16 11:23] LABS: ALBUMIN 3.9 g/dL (3.4-5.0); ANION GAP 15.5 mmol/L (8-16); BILIRUBIN - TOTAL 0.31 mg/dL (0.2-1.3); CALCIUM 9.4 mg/dL (8.5-10.1); CREATININE - SERUM 1.1 mg/dL (0.6-1.3); POTASSIUM - SERUM 4.5 mmol/L (3.5-5.1); PROTEIN - SERUM 7.1 g/dL (6.4-8.2)
--- NOTE | 2018-02-16 12:26 | NUR ---
PT RESTING IN SEMI-BENÍTEZ'S WITH NO SIGNS OF DISTRESS. SIDE RAILS RAISED, FAMILY MEMBER AT THE BEDSIDE. CALL LIGHT IN REACH, WILL CONTINUE TO MONITOR.
--- NOTE | 2018-02-16 14:17 | NUR ---
MERREM INFUSION COMPLETE AT 1406.
--- NOTE | 2018-02-16 14:55 | NUR ---
PATIENT ARRIVD TO UNIT AT THIS TIME VIA WHEEL CHAIR ACCOMPANIED BY ER NURSE. VSS. ON ROOM AIR. ABLE TO AMBULATE. NO EVIDENCE OF SKIN BREAKDOWN. RADIAL AND PEDAL PULSES PALPABLE JAIMEE. NORMAL SINUS RHYTHM. NS INFUSING AT 100ML/HR THROUGH LEFT 20 GUAGE PIV. WILL CONTINUE TO MONITOR.
--- NOTE | 2018-02-16 15:46 | NUR ---
CALLED DR. RUIZ OFFICE FOR CONSULT. SPOKE TO NURSE ON PHONE. STATED "I WILL LET HIM KNOW"
--- NOTE | 2018-02-16 17:10 | NUR ---
GAVE PATIENT URINAL TO VOID. URINE IS CLEAR YELLOW. VSS. PT AWAKE AND ALERT WATCHING TV. WILL CONTINUE TO MONITOR
--- NOTE | 2018-02-16 18:23 | NUR ---
VISITING PATIENT IN ROOM. SHE IS TAKING PATIENTS BELONGS (2 RINGS AND A WATCH) HOME WITH HER WHEN SHE LEAVES. DR. COSTA ALSO CAME BY TO SEE PATIENT.
[2018-02-16 19:33] LABS: HEMATOCRIT 34.6 % (42.0-54.0); HEMOGLOBIN 11.9 g/dL (13.5-17.5)
[2018-02-17] VITALS (23 sets, daily range): BP systolic 105–157; BP diastolic 57–783; Ht 175.3 cm; Wt 82.1 kg
[2018-02-17 04:57] LABS: BASOPHILS 0.4 % (0-2); EOSINOPHILS 1.7 % (0-7); HEMATOCRIT 32.7 % (42.0-54.0); HEMOGLOBIN 11.2 g/dL (13.5-17.5); LYMPHOCYTES 35.1 % (15-50); MCHC 34.3 g/dL (31.0-37.0); MCV 90.6 fL (80.0-100.0); MEAN PLATELET VOLUME 9.6 fL (7.4-10.4); MONOCYTES 7.5 % (2-11); NEUTROPHILS 55.3 % (40-80); PLATELET COUNT 211 10x3/uL (130-400); RDW 13.6 % (11.5-14.5); WBC 5.2 10x3/uL (4.8-10.8)
[2018-02-17 05:15] LABS: RBC 3.61 10x6/uL (4.20-6.10)
[2018-02-17 05:22] LABS: ALBUMIN 3.1 g/dL (3.4-5.0); ANION GAP 12.8 mmol/L (8-16); BILIRUBIN - TOTAL 0.53 mg/dL (0.2-1.3); CALCIUM 8.1 mg/dL (8.5-10.1); CARBON DIOXIDE 24.2 mmol/L (21.0-32.0); CREATININE - SERUM 1.1 mg/dL (0.6-1.3); PHOSPHOROUS 2.8 mg/dL (2.5-4.9); PROTEIN - SERUM 5.8 g/dL (6.4-8.2); TROPONIN-I 0.025 ng/mL (0.000-0.060)
[2018-02-17 06:02] LABS: INR 1.09 (0.85-1.17); PROTIME 13.6 SECONDS (11.6-15.0)
--- NOTE | 2018-02-17 07:00 | NUR ---
PT RESTING IN BED C CALL KANG IN REACH AWAKE, ALERT, AND ORIENTED. VSS. STATED NO BM LASTNIGHT. WILL CONTINUE TO MONITOR
--- NOTE | 2018-02-17 08:11 | NUR ---
CALLED [employer] FOR PLEXI PULSE FOOT PUMPS. SCOTT STATED SHE WILL BRING THEM
--- NOTE | 2018-02-17 09:07 | NUR ---
PATIENT HAD BM MIXED WITH VOID IN BSC. RED BLOOD IS APPARENT. PATIENT CLEANED SELF. WILL NOTIFY PHYSICIAN OF FINDINGS WHEN ROUNDS ARE MADE.
--- NOTE | 2018-02-17 09:26 | NUR ---
SPOKE TO DR. SRINIVASAN ON PHONE. INFORMED PATIENT THAT COLONOSCOPY IS SCHEDULED FOR TODAY PER DR. SRINIVASAN ORDER.
--- NOTE | 2018-02-17 10:30 | NUR ---
OBTAINED CONSENTS FOR BLOOD, ANESTHESIA, AND COLONOSCOPY PROCEDURE TODAY.
--- NOTE | 2018-02-17 13:00 | NUR ---
PATIENT RESTING QUIETLY WITH STABLE VITAL SIGNS. VOIDED 600CC CLEAR YELLOW URINE IN URINAL. NO COMPLAINTS. CALL KANG IN REACH
--- NOTE | 2018-02-17 15:00 | NUR ---
PATIENT RESTING IN BED VISITING WITH . EXPLAINED THAT SURGERY TEAM HAD UNEXPECTED SETBACK TODAY BUT THEY ARE STILL PLANNING ON THE COLONOSCOPY TODAY. NO COMPLAINTS
--- NOTE | 2018-02-17 17:10 | MORECARE ---
CASE MANAGEMENT DISCHARGE SUMMARY PATIENT: CHANA LAW PAT UNIT: [id number] ADM DATE: 02/16/18 AGE: 67 : 52 SEX: M ROOM/BED: D.2311 AUTHOR: KAIDEN AGUILLON PHYSICIAN: REFERRING PHYSICIAN: RACHEL SRINIVASAN MD DATE OF SERVICE: 02/17/18 Discharge Plan Patient Name: CHANA LAW Facility: [facility]:[place] : 1950 Planned Disposition: Home Anticipated Discharge Date: Discharge Date: Expected LOS: Initial Reviewer: [email or web address] Initial Review Date: 02/16/2018 Generated: 02/17/18 6:10 pm Patient Name: CHANA LAW Page [id number] at 1710 All edits/amendments must be made on the electronic document DICTATION DATE: 02/17/181709 TANKAGE SUPERVISOR: EVER 02/17/181709 RPT#: [id number] DC DATE: STATUS: ADM IN [facility] [address] [place] [address] END OF REPORT
--- NOTE | 2018-02-17 17:20 | MORECARE ---
CASE MANAGEMENT DISCHARGE SUMMARY PATIENT: CHANA LAW PAT UNIT: [id number] ADM DATE: 02/16/18 AGE: 67 : 52 SEX: M ROOM/BED: D.2311 AUTHOR: HENNA,DOC PHYSICIAN: REFERRING PHYSICIAN: RACHEL SRINIVASAN MD DATE OF SERVICE: 02/17/18 Discharge Plan Patient Name: CHANA LAW Facility: [facility]:[place] : 1950 Planned Disposition: Home Anticipated Discharge Date: Discharge Date: Expected LOS: Initial Reviewer: [email or web address] Initial Review Date: 02/16/2018 Generated: 02/17/18 6:20 pm Comments DCP- Discharge Planning Updated by [email or web address]: Cheri Guy on 02/17/18 4:[address] Patient Name: CHANA LAW Admission Status: ER Accout number: [id number] Admission Date: 02-16-2018 : 1950 Admission Diagnosis: Attending: RACHEL SRINIVASAN Current LOS: 1 Anticipated DC Date: Planned Disposition: Home Primary Insurance: [employer] OUT OF STATE Discharge Planning Comments: CM met with patient at bedside after obtaining verbal consent. Patient states he plans on returning home after discharge with his . Patient states he will have family transport him home via private vehicle. Patient denies any discharge needs at this time. CM will continue to follow and assist as needed for discharge planning / needs. Income Tax Manager: Cheri Guy DCPIA - Discharge Planning Initial Assessment Updated by [email or web address]: Cheri Guy on 02/17/18 5:10 pm * Is the patient Alert and Oriented? Yes * How many steps to enter\exit or inside your home? * PCP IGOR * Pharmacy [facility] * Preadmission Environment Home with Family * ADLs Independent * Equipment None * List name and contact numbers for known caregivers / representatives who currently or will assist patient after discharge: LIZ LAW - SPOUSE- [phone] * Verbal permission to speak to the caregivers and representatives has been obtained from the patient. N/A * Community resources currently utilized None * Additional services required to return to the preadmission environment? No * Can the patient safely return to the preadmission environment? Yes * Has this patient been hospitalized within the prior 30 days at any hospital? No Last DP export: 02/17/18 4:10 pm Patient Name: CHANA LAW Page [id number] at 1720 All edits/amendments must be made on the electronic document DICTATION DATE: 02/17/181719 YOUTH COUNSELOR: EVER 02/17/181719 RPT#: [id number] DC DATE: STATUS: ADM IN [facility] [address] [place] [address] END OF REPORT
--- NOTE | 2018-02-17 18:00 | NUR ---
COLONOSCOPY PERFORMED BY DOCTOR SRINIVASAN AT BEDSIDE. DIPRIVAN USED FOR SEDATION--PATIENT STABLE. DR. SRINIVASAN REPORTED THE POLYP APPEARS TO BE NO LONGER BLEEDING, SO NO INTERVENTIONS WERE DONE.
--- NOTE | 2018-02-17 18:26 | NUR ---
ORDERED DINNER TRAY FROM DIETARY. IN ROOM VISITING WITH PATIENT.
--- NOTE | 2018-02-17 19:19 | NUR ---
BEDSIDE SHIFT REPORT GIVEN BY DEPARTING RN. PT RESTING IN BED EATING DINNER WITH AT BEDSIDE. AAOX4. PERRLA. C/O PAIN LOCATED IN RECTUM D/T COLONOSCOPY. ASSESSMENT COMPLETE. SAFETY MEASURES IN PLACE. CBIR.
--- NOTE | 2018-02-17 21:14 | NUR ---
MD COLLAZO. SLIM CABAN PHONED. UPDATED ON PT CONDITION REGARDING RECTAL PAIN. ORDERS RECEIVED, VERIFIED, AND READ BACK. SEE MAR FOR DETAILS.
--- NOTE | 2018-02-17 21:48 | NUR ---
COMPLETE LINEN CHANGE AND GOWN CHANGE. TOLERATED WELL.
--- NOTE | 2018-02-17 22:49 | NUR ---
REASSESSMENT COMPLETE. NO CHANGES NOTED IN PT CONDITION. NIGHT TIME SNACK PROVIDED.
[2018-02-18] VITALS (10 sets, daily range): BP systolic 115–163; BP diastolic 70–91
--- NOTE | 2018-02-18 01:19 | NUR ---
PT USED CALL LIGHT. NEEDS TO HAVE A BM. BSC PROVIDED. 1 BROWN, SOFT BM NOTED SPRINKLED WILL MODERATE TO LARGE DARK RED BLOOD CLOTS. PT COMPLAINED OF STOMACH CRAMPS. SAYS "I FEEL BETTER NOW THAT I'VE GONE TO THE BATHROOM." SAFETY MEASURES IN PLACE. CBIR.
--- NOTE | 2018-02-18 03:03 | NUR ---
REASSESSMENT COMPLETE. VSS. NO CHANGES IN PT CONDITION. SHOWING NO S/S OF DISTRESS. REPOSITIONS SELF NEEDED.
--- NOTE | 2018-02-18 07:15 | NUR ---
BEDSIDE SHIFT REPORT RECEIVED AND CARE ASSUMED. ALERT AND ORIENTED. VSS. ASSISTED UP TO BEDSIDE COMMODE. SMALL BM WITH NO BLOOD NOTED. DENIES PAIN. SAFETY PRECAUTIONS IN PLACE. WILL CONTINUE TO MONITOR.
[2018-02-18 10:13] LABS: BASOPHILS 0.4 % (0-2); EOSINOPHILS 1.6 % (0-7); HEMATOCRIT 35.8 % (42.0-54.0); HEMOGLOBIN 12.2 g/dL (13.5-17.5); IMMATURE GRANULOCYTES 0.1 % (0-5); MCH 31.3 pg (26.0-34.0); MCHC 34.1 g/dL (31.0-37.0); MCV 91.8 fL (80.0-100.0); MEAN PLATELET VOLUME 9.5 fL (7.4-10.4); MONOCYTES 6.7 % (2-11); NEUTROPHILS 73.2 % (40-80); PLATELET COUNT 232 10x3/uL (130-400); RDW 13.8 % (11.5-14.5)
[2018-02-18 10:14] LABS: WBC 7.4 10x3/uL (4.8-10.8)
[2018-02-18] MEDS ORDERED: COLACE100 MG PO (10:39)
--- NOTE | 2018-02-18 11:30 | NUR ---
DISCHARGE PAPERWORK REVIEWED WITH PATIENT AND . PATIENT TAKEN TO PRIVATE TRUCK VIA WHEELCHAIR.
--- NOTE | 2018-02-19 10:04 | MORECARE ---
CASE MANAGEMENT DISCHARGE SUMMARY PATIENT: CHANA LAW PAT UNIT: [id number] ADM DATE: 02/16/18 AGE: 67 : 54 SEX: M ROOM/BED: D.2311 AUTHOR: HENNADOC PHYSICIAN: REFERRING PHYSICIAN: RACHEL SRINIVASAN MD DATE OF SERVICE: 02/19/18 Discharge Plan Patient Name: CHANA LAW Facility: [facility]:[place] : 1950 Planned Disposition: Home Anticipated Discharge Date: Discharge Date: 02/18/2018 Expected LOS: Initial Reviewer: [email or web address] Initial Review Date: 02/16/2018 Generated: 02/19/18 11:04 am Comments DCP- Discharge Planning Updated by [id number]: Cheri Guy on 02/17/18 4:[address] Patient Name: CHANA LAW Admission Status: ER Accout number: [id number] Admission Date: 02-16-2018 : 1950 Admission Diagnosis: Attending: RACHEL SRINIVASAN Current LOS: 1 Anticipated DC Date: Planned Disposition: Home Primary Insurance: [employer] OUT OF STATE Discharge Planning Comments: CM met with patient at bedside after obtaining verbal consent. Patient states he plans on returning home after discharge with his . Patient states he will have family transport him home via private vehicle. Patient denies any discharge needs at this time. CM will continue to follow and assist as needed for discharge planning / needs. Freight Booker: Cheri Guy DCPIA - Discharge Planning Initial Assessment Updated by [email or web address]: Cheri Guy on 02/17/18 5:10 pm * Is the patient Alert and Oriented? Yes * How many steps to enter\exit or inside your home? * PCP IGOR * Pharmacy [facility] * Preadmission Environment Home with Family * ADLs Independent * Equipment None * List name and contact numbers for known caregivers / representatives who currently or will assist patient after discharge: LIZ LAW - SPOUSE- [phone] * Verbal permission to speak to the caregivers and representatives has been obtained from the patient. N/A * Community resources currently utilized None * Additional services required to return to the preadmission environment? No * Can the patient safely return to the preadmission environment? Yes * Has this patient been hospitalized within the prior 30 days at any hospital? No Last DP export: 02/17/18 4:20 pm Patient Name: CHANA LAW Page 72401 at 1004 All edits/amendments must be made on the electronic document DICTATION DATE: 02/19/18 100 TOBACCO GRADER: EVER 02/19/18 100 RPT#: [id number] DC DATE:02/18/18 STATUS: DIS IN [facility] [address] [place] [address] END OF REPORT
--- NOTE | 2018-02-19 10:55 | OP ---
PATIENT NAME: CHANA LAW MEDICAL RECORD: [id number] :[birth year] LOCATION:[facility] D.2311 ADMISSION DATE:02/16/18 SURGEON: RACHEL SRINIVASAN MD DATE OF OPERATION: 02/17/2018 PREOPERATIVE DIAGNOSIS: Post-polypectomy bleeding. POSTOPERATIVE DIAGNOSIS: Post-polypectomy bleeding with ulcerated areas that are not currently bleeding. PROCEDURE: Flexible proctoscopy. SURGEON: Rachel Srinivasan MD ANTIQUE REPAIRER: None. BLOOD LOSS: Minimal. ANESTHESIA: IV sedation. COMPLICATIONS: None. The patient has had rectal bleedings status post polypectomy. He continues to bleed. Therefore, I have scheduled him for a flexible proctoscopy to control hemorrhage. OPERATIVE COURSE: The patient was seen in his ICU room. IV sedation was induced by the anesthesia staff. He was positioned in the Carmichael position. A colonoscope was inserted through the anus. It was advanced to the sigmoid colon. I then withdrew it. There was an ulcerated area where I had treated a scar as well as an ulcerated area where I removed the polyp. There was a lot of blood within the rectum. I washed blood out thoroughly. Both ulcerated areas had a white exudate at the base; however, neither one was acutely bleeding; therefore, no intervention was indicated. The endoscope was then withdrawn under direct vision. I want to restart the patient on a diet. If he does not rebleed tonight, I will plan to dismiss him home tomorrow. TRANSINT:[id number] Voice Confirmation ID: [id number] DOCUMENT ID: [id number] RACHEL SRINIVASAN MD at 1055 CC: RED MCCALLUM M.D. and VIKTOR COSTA [id number] DICTATION DATE: 02/17/181901 CHANGE AGENT: 02/17/18 2211 DIS IN 02/18/18 [place] [id number] [place] [id number]
== END 2018-02-18 11:30 | disposition home or self-care (01) | DRG 920 ==
LOC: D.ER 10:17 → D.EDHOLD 12:49 → OBSVTIME 12:49 → D.EDHOLD 12:49 → D.ICU 12:52 → D.EDHOLD 12:52 → D.WS 13:45 → D.EDHOLD 14:03 → D.ICU 14:41
PROVIDERS: Family Medicine; ADMIT Surgery
PROC: 0DJD8ZZ Inspection of Lower Intestinal Tract, Via Natural or Artificial Opening Endoscopic (ICD-10-PCS; principal; 2018-02-17 17:36)
DX: K91.840 Postprocedural hemorrhage of a digestive system organ or structure following a digestive system procedure (principal); K62.5 Hemorrhage of anus and rectum; D62 Acute posthemorrhagic anemia; T45.525A Adverse effect of antithrombotic drugs, initial encounter; I95.1 Orthostatic hypotension; K21.9 Gastro-esophageal reflux disease without esophagitis

== ENCOUNTER → 2018-09-04 10:37 | Outpatient (CLI) | payer BC, MEDICARE ==
[2018-02-17 09:29] VITALS: BMI 25.8
[~2018-09-04 10:37] MED LIST changes: +COLACE100 MG PO
--- NOTE | 2018-09-04 14:45 | EC ---
PATIENT:CHANA LAW DATE OF SERVICE: 09/04/18 SEX: M MEDICAL RECORD: [id number] DATE OF : [birth year] LOCATION:[facility] AGE OF PATIENT: 67 ADMISSION DATE: 09/04/18 REFERRING PHYSICIAN: INTERPRETING PHYSICIAN: PHILLIP DARDEN MD ECHOCARDIOGRAM REPORT ECHO CHARGES 4 ECHO COMPLETE Date: 09/04/18 CLINICAL DIAGNOSIS: H/O TN/CAD ECHOCARDIOGRAPHIC MEASUREMENTS (adult normal given) AC root (d.<3.7cm) 3.2 cm LV Septum d (<1.2 cm> 1.2 cm Valve Excursion 2.1 cm LV Septum (systole) 1.6 cm Left Atria (s.<4.0cm> 3.8 cm LVPW d(<1.2cm) 1.3 cm RV (d.<2.3cm) 2.3 cm LVPW (sytole) 1.9 cm LV diastole(<5.6CM) 4.8 cm MV E-F(>70mm/sec) cm LV systole 2.9 cm LVOT Diameter 1.7 cm MV exc.(>10mm) cm Est.ejection fraction (50-75%) % DOPPLER: LVIT cm/sec A 82.0 cm/sec E 59.0 cm/sec LA cm/sec RVSP 29.0 mmHg LVOT 95.0 cm/sec AOP1/2T m/s Asc. Ao 109 cm/sec RVOT 49.0 cm/sec RA cm/sec PA 73.0 cm/sec AV Gradient Peak 4.7 mmHg AV Mean 2.5 mmHg AV Area 1.7 cm MV Gradient Peak 4.8 mmHg MV Mean 1.5 mmHg MV Area cm COMMENTS: OP - HC Home And Family Living Professor: Mary Jane PHAM [place] Storage Worker: 1 Dr. Darden TAPE# PACS Pericardial Effusion N DATE OF SERVICE: 09/04/2018 PROCEDURE: Echocardiogram. FINDINGS: 1. Left ventricular chamber size is within normal limits. Left ventricular systolic function is normal. Overall ejection fraction estimated at 55%. 2. Left atrium, right atrium and right ventricular chamber sizes are within normal limits. 3. Valvular structures have normal structure and motion. ECHOCARDIOGRAM REPORT [id number] CHANA LAW PAT 4. Doppler interrogation reveals trace mitral regurgitation, trace tricuspid regurgitation, no other valvular insufficiency or stenosis. Pulmonary systolic pressure is estimated at 29 mmHg. 5. No evidence of pericardial effusion or left ventricular thrombus. TRANSINT:[id number] Voice Confirmation ID: [id number] DOCUMENT ID: [id number] PHILLIP DARDEN MD at 1445 CC: [id number] DICTATION DATE: 09/04/18 142 COMMUNICABLE DISEASE SPECIALIST: 09/04/18 1439 REG [facility] [address] [place] [id number]
== END | disposition home or self-care (01) ==
LOC: D.HCCARDIO 10:37
PROVIDERS: ATTEND Internal Medicine Interventional Cardiology
DX: I25.10 Atherosclerotic heart disease of native coronary artery without angina pectoris (principal); I10 Essential (primary) hypertension

== ENCOUNTER → 2019-05-21 08:29 | Outpatient (CLI) | payer BC ==
[2018-02-17 09:29] VITALS: BMI 25.8
== END | disposition home or self-care (01) ==
LOC: D.HCCARDIO 08:29
PROVIDERS: ATTEND Internal Medicine Cardiovascular Disease
DX: I25.10 Atherosclerotic heart disease of native coronary artery without angina pectoris (principal)

== ENCOUNTER 2019-10-02 19:24 | Emergency (ER) | payer BC ==
[~2019-10-02] VITALS: Ht 175.3 cm; Wt 81.8 kg
[2019-10-02 19:36] VITALS: Ht 175.3 cm; Wt 81.8 kg
[2019-10-02] MEDS ORDERED: PREDNISONE20 MG PO (21:16)
[2019-10-02] MEDS ORDERED: EPIPEN 2-P0.3 MG/0.3 IM (21:16)
[2019-10-02 21:30] VITALS: BP 167/89
== END 2019-10-02 21:30 | disposition home or self-care (01) ==
LOC: D.ER 19:24
DX: T63.481A Toxic effect of venom of other arthropod, accidental (unintentional), initial encounter (principal); I10 Essential (primary) hypertension; I25.2 Old myocardial infarction; K21.9 Gastro-esophageal reflux disease without esophagitis

== ENCOUNTER → 2020-08-09 08:06 | Outpatient (CLI) | payer BC, MEDICARE ==
[2019-12-17 10:46] VITALS: BMI 26.6
[~2020-08-09 08:06] MED LIST changes: +CIALIS2.5 MG PO; +EPIPEN 2-P0.3 MG/0.3 IM; +PREDNISONE20 MG PO; +UNASOM; +VITAMIN B-12500 MCG PO; +VITAMIN C WIT1000 MG PO
== END | disposition home or self-care (01) ==
LOC: D.HCCECHO 07-20 08:30
PROVIDERS: ATTEND Internal Medicine Cardiovascular Disease
DX: I10 Essential (primary) hypertension (principal)